=== PATIENT | female | born 1995 | race Caucasian/White ===

== ENCOUNTER 2019-02-03 04:52 | Emergency (ER) | payer OTHER ==
[2019-02-03] MEDS ORDERED: SODIUM CHLORIDE 0.9% 1000 ML INFUS.BAG IV ONE (05:24)
[2019-02-03] MEDS ORDERED: ONDANSETRON 4 MG/2 ML VIAL IVPUSH ONE (05:24)
[2019-02-03 05:30] VITALS: BP 114/62; PULSE 91; TEMP 98.2; BMI 17.4
[2019-02-03] MEDS ORDERED: ONDANSETRON 4 MG/2 ML VIAL ONE (05:38)
--- NOTE | 2019-02-03 06:00 | PDOC ---
Attending Attestation - HPI HPI: 02/03/19 06:21 The patient is a 23 year old female, with no significant past medical history, who presents to the emergency department with, nausea with associated 5 episodes of vomiting onsetting at 3am. She denies recent fevers, chills, headache or dizziness. She denies recent diarrhea or constipation. She denies recent dysuria, frequency, urgency or hematuria. She denies recent chest pain or shortness of breath. Allergies: NKDA Past surgical history: None reported. Social history: Not sexually active. Nonsmoker. Denies EtOH use and recreational drug use. Primary Care Physician: Mandi Pineda - Physicial Exam PE: 02/03/19 06:21 Agree with resident exam. <Mandy Villagomez - Last Filed: 02/03/19 06:21> - Resident Resident Name: Vasyl Ball - ED Attending Attestation I have performed the following: I have examined & evaluated the patient, The case was reviewed & discussed with the resident, I agree w/resident's findings & plan - Medical Decision Making 02/03/19 21:53 23-year-old female with abdominal cramping and vomiting, now resolved Labs are unremarkable Patient stated she felt better and was ready to go home prior to urinalysis She will be discharged with recommendations for outpatient follow-up and to return if worse <Carmen Willis - Last Filed: 02/03/19 21:54> Attestations - Attestations 02/03/19 06:21 Documentation prepared by Mandy Villagomez, acting as medical director of hospice for Carmen Willis DO. <Mandy Villagomez - Last Filed: 02/03/19 06:21>
[2019-02-03 06:07] LABS: BASO % 0.5 % (0-2.0); EOS % 0.9 % (0-4.5); HEMATOCRIT 36.4 % (32.4-45.2); HEMOGLOBIN 12.1 GM/dL (10.7-15.3); LYMPH % 28.1 % (8-40); MCH 28.9 pg (25.7-33.7); MCHC 33.3 g/dl (32.0-36.0); MEAN CELL VOLUME 86.8 fl (80-96); MEAN PLT VOLUME 7.2 fl (7.5-11.1); MONO % 8.1 % (3.8-10.2); NEUT % 62.4 % (42.8-82.8); PLATELET COUNT 254 K/MM3 (134-434); RDW 14.3 % (11.6-15.6); WHITE BLOOD COUNT 5.3 K/mm3 (4.0-10.0)
--- NOTE | 2019-02-03 06:09 | PDOC ---
History of Present Illness - General Chief Complaint: Nausea/Vomiting Stated Complaint: VOMITING Time Seen by Provider: 02/03/19 05:24 History Source: Patient Exam Limitations: No Limitations - History of Present Illness Initial Comments: 02/03/19 06:05 The patient is a 23F with no PMH who presents to the ER with sudden onset nausea and vomiting. The patient states that she woke up around 0300 this morning with nausea and vomited 5 times, NBNB. She denies fever, chills, CP, SOB , dysuria, hematuria. She states that she is on control and cannot be because she abstains from sexual activity. She denies EtOH and marijuana use. She denies any abdominal pain, vaginal discharge, and dysuria. Past History - Past Medical History Allergies/Adverse Reactions: Allergies Allergy/AdvReac Type Severity Reaction Status Date / Time No Known Allergies Allergy Verified 02/03/19 05:24 Home Medications: Ambulatory Orders NK [No Known Home Medication] 02/03/19 COPD: No - Immunization History Immunization Up to Date: Yes - Suicide/Smoking/Psychosocial Hx Smoking History: Never smoked Have you smoked in the past 12 months: No Information on smoking cessation initiated: No Hx Alcohol Use: Yes Drug/Substance Use Hx: No Review of Systems - Review of Systems Able to Perform ROS?: Yes Comments:: 02/03/19 06:06 GENERAL/CONSTITUTIONAL: No fever or chills. No weakness. HEAD, EYES, EARS, NOSE AND THROAT: No change in vision. No ear pain or discharge. No sore throat. CARDIOVASCULAR: No chest pain, palpitations, or lightheadedness. RESPIRATORY: No cough, wheezing, shortness of breath, or hemoptysis. GASTROINTESTINAL: + for nausea and vomiting. No diarrhea, constipation, or abdominal pain. GENITOURINARY: No dysuria, frequency, hematuria, or change in urination. MUSCULOSKELETAL: No joint or muscle swelling or pain. No neck or back pain. SKIN: No rash or lesions. NEUROLOGIC: No headache, numbness, tingling, focal weakness, loss of consciousness, or change in strength/sensation. Is the patient limited Urdu proficient: No *Physical Exam - Vital Signs Last Vital Signs Temp Pulse Resp BP Pulse Ox 98.2 F 91 H 20 114/62 100 02/03/19 04:52 02/03/19 04:52 02/03/19 04:52 02/03/19 04:52 02/03/19 04:52 - Physical Exam Comments: 02/03/19 06:07 GENERAL: Well developed, well nourished. Awake and alert. No acute distress. HEENT: Normocephalic, atraumatic. Hearing grossly normal. Moist mucous membranes. PERRLA, EOMI. No conjunctival pallor. NECK: Supple. Full ROM. No JVD. CARDIOVASCULAR: Regular rate and rhythm. No murmurs, rubs, or gallops. Distal pulses are 2+ and symmetric. PULMONARY: No evidence of respiratory distress. Lungs clear to auscultation bilaterally. No wheezing, rales or rhonchi. ABDOMINAL: Soft. Mild tenderness to deep palpation in umbilicus. Non-distended. No rebound or guarding. GENITOURINARY: No CVA tenderness bilaterally. MUSCULOSKELETAL: Normal range of motion at all joints. No bony deformities or tenderness. EXTREMITIES: No cyanosis. No clubbing. No edema. No calf tenderness or swelling. SKIN: Warm and dry. Normal capillary refill. No rashes. No jaundice. NEUROLOGICAL: Alert, awake, appropriate. Cranial nerves 2-12 grossly intact. Normal speech. PSYCHIATRIC: Cooperative. Good eye contact. Appropriate mood and affect. Moderate Sedation - Procedure Monitoring Vital Signs: Procedure Monitoring Vital Signs Temperature 98.2 F 02/03/19 04:52 Pulse Rate 91 H 02/03/19 04:52 Respiratory Rate 20 02/03/19 04:52 Blood Pressure 114/62 02/03/19 04:52 O2 Sat by Pulse Oximetry (%) 100 02/03/19 04:52 ED Treatment Course - LABORATORY CBC & Chemistry Diagram: 02/03/19 05:41 02/03/19 05:41 - Medications Given in the ED: ED Medications Discontinued Medications Generic Name Dose Route Start Last Admin Trade Name Freq PRN Reason Stop Dose Admin Ondansetron HCl 4 mg 02/03/19 05:24 02/03/19 05:53 Zofran Injection IVPUSH 02/03/19 05:25 4 mg ONCE ONE Administration Sodium Chloride 1,000 ml 02/03/19 05:24 02/03/19 05:53 Normal Saline - IV 02/03/19 05:25 1,000 ml ONCE ONE Administration Medical Decision Making - Medical Decision Making 02/03/19 06:08 The patient is a 23F with no PMH who presents to the ER with sudden onset nausea and vomiting. Will check electrolytes and treat symptomatically. 02/03/19 06:49 Pt nontender on reexamination. No longer nauseous. Will d/c with PCP f/u. *DC/Admit/Observation/Transfer Diagnosis at time of Disposition: Nausea and vomiting Qualifiers: Vomiting type: unspecified Vomiting Intractability: non-intractable Qualified Code(s): R11.2 - Nausea with vomiting, unspecified - Discharge Dispostion Disposition: HOME Condition at time of disposition: Good Decision to Admit order: No - Referrals Referrals: Mandi Murillo MD [Primary Care Provider] - - Patient Instructions Printed Discharge Instructions: DI for Nausea -- Adult Additional Instructions: Your ER visit is not complete until your follow up with your primary care physician. Please follow up with your primary care physician in 1-2 days. Please return to the ER if you have any signs or symptoms of chest pain, shortness of breath, uncontrollable fever, chills, nausea, vomiting, numbness, tingling, or weakness in any part of your body, changes in vision, or slurred speech. Please return to the ER if symptoms persist, worsen, or new symptoms arise. - Post Discharge Activity
[2019-02-03 06:42] LABS: ALBUMIN 3.9 g/dl (3.4-5.0); ALK PHOS 52 U/L (45-117); ANION GAP 6 MMOL/L (8-16); BILIRUBIN,TOTAL 1.1 mg/dL (0.2-1); BLOOD UREA NITROGEN 15 mg/dL (7-18); CALCIUM 8.9 mg/dL (8.5-10.1); CHLORIDE 102 mmol/L (98-107); CO2 29 mmol/L (21-32); CREATININE 0.8 mg/dL (0.55-1.3); GLUCOSE,RANDOM 104 mg/dL (74-106); MAGNESIUM 2.3 mg/dL (1.8-2.4); POTASSIUM 3.9 mmol/L (3.5-5.1); SGOT/AST 18 U/L (15-37); SGPT/ALT 42 U/L (13-61); SODIUM 137 mmol/L (136-145); TOT PROT 7.6 g/dl (6.4-8.2)
== END 2019-02-03 06:58 | disposition home or self-care (01) ==
LOC: JER 04:52
PROC: 3E033GC Introduction of Other Therapeutic Substance into Peripheral Vein, Percutaneous Approach (ICD-10-PCS; principal; 2019-02-03)
PROC: 3E0337Z Introduction of Electrolytic and Water Balance Substance into Peripheral Vein, Percutaneous Approach (ICD-10-PCS; 2019-02-03)
DX: R11.2 Nausea with vomiting, unspecified (principal)
CPT/HCPCS: 36415; 80053; 83735; 84703; 85025; 99282-25; J7030